=== PATIENT | male | born 1990 | race Caucasian/White ===

== ENCOUNTER 2022-01-26 10:22 | Inpatient (IN) | payer OTHER ==
[~2022-01-26] VITALS: Ht 165.1 cm; Wt 55.0 kg
[2022-01-26 11:15] LABS: BASOPHILS ABSOLUTE AUTO 0.08 K/mm3 (0.00-0.23); BASOPHILS PERCENT AUTO 0 % (0-2); EOSINOPHILS ABSOLUTE AUTO 0.01 K/mm3 (0.00-0.68); EOSINOPHILS PERCENT AUTO 0 % (0-6); Hematocrit 39.7 % (37.0-53.0); Hemoglobin 13.3 g/dL (13.5-17.5); IMMATURE GRAN ABSOLUTE AUTO 0.57 K/mm3 (0.00-0.10); IMMATURE GRAN PERCENT AUTO 2 % (0-1); LYMPHOCYTES ABSOLUTE AUTO 0.34 K/mm3 (0.84-5.20); LYMPHOCYTES PERCENT AUTO 1 % (21-46); MONOCYTES ABSOLUTE AUTO 0.99 K/mm3 (0.16-1.47); MONOCYTES PERCENT AUTO 4 % (4-13); Mean Corpuscular HGB 33.3 pg (26.0-34.0); Mean Corpuscular HGB Conc 33.5 g/dL (31.5-36.5); Mean Corpuscular Volume 99 fL (80-100); Mean Platelet Volume 8.6 fL (9.1-12.4); NEUTROPHILS ABSOLUTE AUTO 24.06 K/mm3 (1.96-9.15); NEUTROPHILS PERCENT AUTO 92 % (41-73); Platelet Count 430 K/mm3 (150-400); RDW Coefficient Variation 12.7 % (11.7-14.2); RDW Standard Deviation 46.2 fL (35.1-46.3); White Blood Cell Count 26.05 K/mm3 (4.00-11.30)
[2022-01-26 11:33] LABS: Alanine Aminotransfer (ALT/SGP 101 U/L (12-78); Albumin, Blood 3.9 g/dL (3.4-5.0); Albumin/Globulin Ratio 0.9 (0.8-1.8); Alk Phos 119 U/L (50-136); Anion Gap 25 mmol/L (6-16); Aspartate Aminotrans (AST/SGOT 137 U/L (12-37); Bilirubin, Total 1.1 mg/dL (0.1-1.0); Blood Urea Nitrogen 27 mg/dL (8-24); Bun/Creatinine Ratio 32.9 (12.0-20.0); CO2, Blood 19 mmol/L (21-32); Calcium, Blood 9.4 mg/dL (8.5-10.1); Chloride, Blood 94 mmol/L (98-108); Creatinine, Blood 0.82 mg/dL (0.60-1.20); Ethanol (Alcohol), Blood, Med <3 mg/dL; Globulin, Blood 4.4 g/dL (2.2-4.0); Glomerular Filtration Rate 120 (60-); Glucose, Blood 135 mg/dL (70-99); Potassium, Blood 2.9 mmol/L (3.5-5.5); Sodium, Blood 138 mmol/L (136-145); Total Protein, Blood 8.3 g/dL (6.4-8.2)
[2022-01-26 15:24] LABS: Base Excess Venous -7.5 mmol/L; Bicarbonate Venous 18.9 mmol/L (24.0-30.0); PCO2 Venous 35.4 mmHg (38-42); pH Blood Venous 7.33 (7.34-7.37)
--- NOTE | 2022-01-26 17:56 | NUR ---
Telephone report received from RYLIE ekller. Pt coming to PCU 8
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
[2022-01-26 19:58] LABS: Source, Urine Clean Catch
[2022-01-26 20:03] LABS: Appearance, Urine Clear (Clear); Bilirubin, Urine Neg (Neg); Blood, Urine 2+ (Neg); Color, Urine Yellow (P-Yellow); Glucose Qualitative, Urine Neg (Neg); Ketones, Urine 4+ (Neg); Leukocyte Esterase, Urine Neg (Neg); Nitrite, Urine Neg (Neg); Protein, Urine 2+ (Neg); Urobilinogen, Urine NORM (Normal)
[2022-01-26 20:15] LABS: U Amphetamine Screen DETECTED; U Benzodiazapine Screen DETECTED; U Methamphetamine Screen DETECTED
[2022-01-26 20:16] LABS: U Barbituate Screen DETECTED; U Buprenorphine Screen Not Detected; U Cannabinoids Screen Not Detected; U Cocaine Screen Not Detected; U Methadone Screen Not Detected; U Opiates Screen Not Detected; U Oxycodone Screen Not Detected; U Phencyclidine Screen Not Detected; U Propoxyphene Screen Not Detected
[2022-01-26 20:20] LABS: Bacteria Few /hpf; Squamous Epithelial Cells Few /hpf (Few)
[2022-01-26 20:21] LABS: Hyaline Casts 0-2 /lpf (0-2)
[2022-01-27 04:26] LABS: Hematocrit 30.9 % (37.0-53.0); Hemoglobin 10.3 g/dL (13.5-17.5); Mean Corpuscular HGB 33.3 pg (26.0-34.0); Mean Corpuscular HGB Conc 33.3 g/dL (31.5-36.5); Mean Corpuscular Volume 100 fL (80-100); Mean Platelet Volume 8.8 fL (9.1-12.4); Platelet Count 308 K/mm3 (150-400); RDW Coefficient Variation 12.9 % (11.7-14.2); Red Blood Cell Count 3.09 M/mm3 (4.30-5.90); White Blood Cell Count 11.63 K/mm3 (4.00-11.30)
[2022-01-27 04:48] LABS: Magnesium, Blood 1.9 mg/dL (1.6-2.4)
[2022-01-27 04:57] LABS: Albumin, Blood 2.8 g/dL (3.4-5.0); Bilirubin, Total 0.6 mg/dL (0.1-1.0); Bun/Creatinine Ratio 31.8 (12.0-20.0); Calcium, Blood 8.3 mg/dL (8.5-10.1); Creatinine, Blood 0.53 mg/dL (0.60-1.20); Potassium, Blood 3.4 mmol/L (3.5-5.5)
[2022-01-27 04:58] LABS: Albumin/Globulin Ratio 0.9 (0.8-1.8); Globulin, Blood 3.2 g/dL (2.2-4.0)
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
--- NOTE | 2022-01-27 18:24 | NUR ---
SHIFT SUMMARY PT WITH PROGRESSIVELY WORSE HALLUCINATIONS AND CIWA SCORES THE DAY WENT ON. STATES HE SEES PEOPLE OUTSIDE AND STICK FIGURES IN HIS ROOM. ORIENTED X4 WHEN ASKED DIRECT ORIENTATION QUESTIONS. VSS PER PT TREND, SR-ST W/BBB ON TELEMETRY. DENIES CP OR DISCOMFORT, CIWA SCORE 5-18 WITH A TOTAL OF 14MG OF IV ATIVAN AND 300MG OF PO LIBRIUM THIS SHIFT. WILL PASS ON TO NOC RN
--- NOTE | 2022-01-27 21:44 | NUR ---
[facility] Pt is currently sleeping, resp unlabored, NSR, bed alarm is on, call light in reach.
--- NOTE | 2022-01-28 05:04 | NUR ---
SHIFT SUMMARY PT HAS BEEN RESTING QUIETLY THROUGH THE NIGHT WITH NO PROBLEMS. COOPERATIVE W/CARE PT WAS MEDICATED PER EMAR FOR CIWA, HE APPEARS TO BE ORIENTED & STATED "I'M READY TO GO HOME" ONCE BUT UNDERSTANDS WHY HE IS HERE. VSS, RESP UNLABORED, RA, TOLERATING PO INTAKE, USING THE URINAL WITHOUT ASSISTANCE. PT USING CALL LIGHT PRN, BED ALARM ON FOR SAFETY, WCTM & REPORT TO DAY RN.
[2022-01-28 06:40] LABS: Bun/Creatinine Ratio 16.9 (12.0-20.0); Calcium, Blood 8.7 mg/dL (8.5-10.1); Creatinine, Blood 0.47 mg/dL (0.60-1.20); Magnesium, Blood 1.9 mg/dL (1.6-2.4); Potassium, Blood 3.4 mmol/L (3.5-5.5)
--- NOTE | 2022-01-28 12:03 | NUR ---
PT ANXIOUS THIS AFTERNOON TO LEAVE. PER CONVERSATION WITH DR. ALANIZ THIS MORNING LONG PT IS AMBULATING, STABLE ON CIWAS WITHOUT IV MEDS, AND ORIENTED X4 PT WOULD BE OK TO DISCHARGE. NOTIFIED DR. ALANIZ VIA PHONE THAT HE IS INDEED STABLE AND READY TO DISCHARGE IF ABLE. MD TO PLACE ORDERS.
--- NOTE | 2022-01-28 13:56 | NUR ---
DISCHARGE PT DISCHARGED VIA [facility] TO [facility] PER PT. ALL QUESTIONS ANSWERED, RESOURCES GIVEN FOR AA AND PRIMARY CARE REFERRAL SET WITH PT TO FOLLOW UP. PT VERBALIZED UNDERSTANDING OF ALL INSTRUCTIONS. IV REMOVED, PT LEFT WITH ALL BELONGINGS.
== END 2022-01-28 14:01 | disposition home or self-care (01) | DRG 897 ==
LOC: ER 10:22 → ERHOLD 14:35 → PCU 14:35
PROVIDERS: Internal Medicine; Nurse Practitioner Acute Care; Physician Assistant; ADMIT Internal Medicine
DX: F10.239 Alcohol dependence with withdrawal, unspecified (principal); R65.10 Systemic inflammatory response syndrome (SIRS) of non-infectious origin without acute organ dysfunction; E87.29 Other acidosis; E87.6 Hypokalemia; F15.10 Other stimulant abuse, uncomplicated; R74.01 Elevation of levels of liver transaminase levels; F17.210 Nicotine dependence, cigarettes, uncomplicated; R44.1 Visual hallucinations; E86.1 Hypovolemia; Z71.51 Drug abuse counseling and surveillance of drug abuser
CPT/HCPCS: 36415; 71046; 80048; 80053; 81001; 82010; 82803; 83605; 83690; 83735; 85025; 85027; 93005; 93010; 96361; 96374; 96375; 96376; 99285-25; A9270; G0480; J1650; J2060; J2405; J2560; J3411; J3480; J7030; J7042; J7050